=== PATIENT | male | born 1955 | race Hispanic/Latino ===

== ENCOUNTER → 2019-07-21 | Outpatient (CLI) | payer MEDICARE ==
[2019-07-21 10:43] LABS: HEMATOCRIT 41.7 % (38.2-49.6); HEMOGLOBIN 13.9 g/dL (14.0-18.0)
[2019-07-21 10:59] LABS: INR 0.98; PROTHROMBIN TIME 13.5 seconds (11.9-14.5)
[2019-07-21 11:00] LABS: PARTIAL THROMBOPLASTIN TIME 27.3 seconds (23.8-35.5)
--- NOTE | 2019-07-21 17:06 | Diagnostic Imaging Report ---
PROCEDURE: Ultrasound-guided biopsy Procedural Personnel Attending physician(s): Ana King MD Fellow physician(s): None Resident physician(s): None Advanced practice provider(s): None Pre-procedure diagnosis: Left parotid mass Post-procedure diagnosis: Same Indication: Histopathologic diagnosis Previous biopsy of same target (QCDR): No Additional clinical history: None Complications: No immediate complications. IMPRESSION: Ultrasound-guided biopsy of left parotid gland mass. Plan: Specimen(s) sent for evaluation. PROCEDURE SUMMARY: - Percutaneous US-guided left parotid biopsy - Additional procedure(s): None PROCEDURE DETAILS: Pre-procedure Reference imaging for biopsy target: None Consent: Informed consent for the procedure including risks, benefits and alternatives was obtained and time-out was performed prior to the procedure. Preparation: The site was prepared and draped using maximal sterile barrier technique including cutaneous antisepsis. Anesthesia/sedation Level of anesthesia/sedation: No sedation Imaging prior to biopsy The patient was positioned supine. Initial ultrasound was performed. Biopsy target: Left parotid mass Other findings: None Biopsy Local anesthesia was administered. Under US guidance, the biopsy needle was advanced to the target and biopsy was performed. Coaxial needle: N/A Fine needle aspiration device: Chiba Fine needle size: 22g Number of FNA specimens: 3 On-site biopsy touch preparation: Yes Additional sampling recommendations: None Preliminary assessment of sample adequacy: Adequate Needle removal The biopsy needle was removed and a sterile dressing was applied. Tract embolization: None Imaging following biopsy Immediate post-biopsy ultrasound was performed. Post-biopsy imaging findings: No hematoma Additional Details Additional description of procedure: None Equipment details: None Specimens removed: Biopsy samples as detailed above Estimated blood loss (mL): Less than 10 Standardized report: [id number] Attestation Signer name: Ana King MD I attest that I was present for the entire procedure. I reviewed the stored images and agree with the report as written. Signed by: Ana King MD on 07/21/2019 5:03 PM
== END ==
LOC: US 10:11
PROVIDERS: ATTEND Otolaryngology
DX: K11.8 Other diseases of salivary glands (principal)
CPT/HCPCS: 10005; 36415; 85014; 85018; 85049; 85610; 85730; 88172; 88173; 88305

== ENCOUNTER → 2020-07-05 | Outpatient (CLI) | payer MEDICARE ==
--- NOTE | 2020-07-05 11:06 | Diagnostic Imaging Report ---
Ultrasound left parotid mass History: Known left parotid mass status post MRI and FNA in 2019. Technique: Linear transducer was used and multiple grayscale and color flow mapping images were acquired of the mass. Findings: In the region of the left parotid gland there is a 3.0 cc by 1.58 AP x 1.8 cm transverse mass with smooth borders, mostly hypoechoic texture with a few linear areas of increased echo, no calcification. Increased through transmission. The mass appears identical to the images acquired at the time of FNA. Impression: Left parotid area mass which has been previously subjected to MRI, FNA. No change in the appearance of the mass. Please refer to the report of the FNA. Signed by: Gautam Jarvis MD on 07/05/2020 11:02 AM
== END ==
LOC: US 09:51
PROVIDERS: ATTEND Otolaryngology
DX: K11.8 Other diseases of salivary glands (principal)
CPT/HCPCS: 76536